=== PATIENT | female | born 1935 | race Caucasian/White ===

== ENCOUNTER → 2018-05-15 | Outpatient (CLI) | payer MEDICARE ==
[~2018-05-15] MED LIST: ATOR10TA9 PO; CLOP75TA52 PO; HYDR12.517 PO; LISI-167 PO; LORA1TAB PO; METO-282 PO; OMEP-110 PO; SERT25TA PO
== END | disposition home or self-care (01) ==
LOC: RAD 08:31
PROVIDERS: ATTEND Otolaryngology
DX: K21.9 Gastro-esophageal reflux disease without esophagitis (principal); R47.02 Dysphasia
CPT/HCPCS: 74220

== ENCOUNTER 2019-01-29 14:07 | Outpatient (CLI) | payer MEDICARE | END 2019-01-29 23:59 | disposition home or self-care (01) | LOC: CFH 14:07 | PROVIDERS: ATTEND Registered Nurse | DX: I08.3 Combined rheumatic disorders of mitral, aortic and tricuspid valves (principal); I10 Essential (primary) hypertension | CPT/HCPCS: 93306 ==

== ENCOUNTER → 2020-09-22 | Outpatient (CLI) | payer MEDICARE | END | disposition home or self-care (01) | LOC: CFH 08:38 | PROVIDERS: ATTEND Internal Medicine Cardiovascular Disease | DX: I08.8 Other rheumatic multiple valve diseases (principal) | CPT/HCPCS: 93306 ==